=== PATIENT | female | born 1995 | race African-American/Black ===

== ENCOUNTER 2017-08-26 19:12 | Emergency (ER) | payer OTHER ==
[2017-08-26 19:29] VITALS: BP 125/73; PULSE 82; TEMP 98.2; BMI 37.8
[2017-08-26] MEDS ORDERED: ALBUTEROL SO4 2.5/IPRATROPIUM 0.5 INH SOL 3 ML VIAL.NEB. NEB ONE ×2 (19:29→20:03)
--- NOTE | 2017-08-26 19:29 | PDOC ---
Rapid Medical Evaluation Time Seen by Provider: 08/26/17 19:24 Medical Evaluation: Allergies Allergy/AdvReac Type Severity Reaction Status Date / Time No Known Allergies Allergy Verified 11/02/15 03:20 08/26/17 19:25 I have performed a brief in-person evaluation of this patient. The patient presents with a chief complaint of: asthma, pain to low back Pertinent physical exam findings: R sided inspiratory wheezing I have ordered the following: duoneb, cxr The patient will proceed to the ED for further evaluation. Discharge Disposition - Diagnosis Asthma - Referrals - Patient Instructions - Post Discharge Activity
--- NOTE | 2017-08-26 19:52 | PDOC ---
History of Present Illness - General Chief Complaint: Asthma Stated Complaint: ASTHMA Time Seen by Provider: 08/26/17 19:24 History Source: Patient Exam Limitations: No Limitations - History of Present Illness Initial Comments: 08/26/17 20:16 This is an 21-year-old girl with past medical history of mild intermittent asthma who presents to the emergency department with 2 weeks of dry cough and now with back pain and pleuritic chest pain. Patient states over the past 2 days she has developed the back pain and pleuritic chest pain. She denies any shortness of breath. She denies headaches, dizziness, abdominal pain, nausea, vomiting, diarrhea, dysuria, hematuria. Past History - Past Medical History Allergies/Adverse Reactions: Allergies Allergy/AdvReac Type Severity Reaction Status Date / Time No Known Allergies Allergy Verified 08/26/17 19:29 Home Medications: Ambulatory Orders Albuterol Sulfate Inhaler - [Ventolin HFA Inhaler -] 1 - 2 inh PO Q4H #1 inhaler 08/26/17 Azithromycin [Zithromax 250mg Tablets -] 250 mg PO UTDICT #6 tab 08/26/17 Prednisone [Prednisone 50 MG TABLETS] 50 mg PO DAILY #3 tablet 08/26/17 Asthma: Yes COPD: No Other medical history: denies - Immunization History Immunization Up to Date: Yes - Suicide/Smoking/Psychosocial Hx Smoking History: Never smoked Have you smoked in the past 12 months: No Information on smoking cessation initiated: No Hx Alcohol Use: No Drug/Substance Use Hx: No Substance Use Type: None Hx Substance Use Treatment: No Review of Systems - Review of Systems Able to Perform ROS?: Yes Is the patient limited [place] proficient: No Constitutional: No: Symptoms Reported HEENTM: No: Symptoms Reported Respiratory: Yes: See HPI Cardiac (ROS): Yes: See HPI ABD/GI: No: Symptoms Reported : No: Symptoms Reported Musculoskeletal: Yes: See HPI Integumentary: No: Symptoms Reported Neurological: No: Symptoms reported Endocrine: No: Symptoms Reported Hematologic/Lymphatic: No: Symptoms Reported *Physical Exam - Vital Signs Last Vital Signs Temp Pulse Resp BP Pulse Ox 98.2 F 82 20 125/73 99 08/26/17 19:26 08/26/17 19:26 08/26/17 19:26 08/26/17 19:26 04/12/18 19:26 - Physical Exam General Appearance: Yes: Appropriately Dressed. No: Apparent Distress HEENT: positive: Normal ENT Inspection Neck: positive: Trachea midline, Supple Respiratory/Chest: positive: Lungs Clear, Wheezing (Expirational). negative: Respiratory Distress, Accessory Muscle Use Cardiovascular: positive: Regular Rhythm, Regular Rate. negative: Murmur Gastrointestinal/Abdominal: positive: Normal Bowel Sounds, Soft. negative: Tender Musculoskeletal: positive: Normal Inspection. negative: CVA Tenderness Extremity: positive: Normal Inspection Integumentary: positive: Normal Color, Dry, Warm Neurologic: positive: Alert, Normal Response ED Treatment Course - Medications Given in the ED: ED Medications Discontinued Medications Generic Name Dose Route Start Last Admin Trade Name Freq PRN Reason Stop Dose Admin Albuterol/Ipratropium 1 amp 08/26/17 19:29 08/26/17 19:31 Duoneb - NEB 08/26/17 19:30 1 amp ONCE ONE Administration Medical Decision Making - Medical Decision Making 08/26/17 20:13 A/P: 21-year-old female history of asthma presents emergency departments with 2 weeks of dry cough. Forced expiratory wheezes present Speaking full sentences Respirations even and unlabored Chest x-ray, prednisone 60 mg, DuoNebs Chest x-ray as read by me: Cardiac silhouette is within normal limits. No focal consolidation or infiltrate is noted. No pneumothorax is seen. Visualized osseous structures are intact. *DC/Admit/Observation/Transfer Diagnosis at time of Disposition: Bronchitis Asthma Qualifiers: Asthma severity: mild Asthma persistence: intermittent Asthma complication type : unspecified Qualified Code(s): J45.20 - Mild intermittent asthma, uncomplicated - Discharge Dispostion Disposition: HOME Condition at time of disposition: Stable Admit: No - Prescriptions Prescriptions: Albuterol Sulfate Inhaler - [Ventolin HFA Inhaler -] 1 - 2 inh PO Q4H #1 inhaler Azithromycin [Zithromax 250mg Tablets -] 250 mg PO UTDICT #6 tab Prednisone [Prednisone 50 MG TABLETS] 50 mg PO DAILY #3 tablet - Referrals - Patient Instructions Printed Discharge Instructions: Asthma -- Adult Additional Instructions: Rest, drink lots of fluids: Teas, water, soups, Pedialyte Saltwater gargles Steamy showers/seem to face break up mucus Avoid contact with others until fevers and cough resolved Lots of handwashing and good hygiene Continue [id number] medications for symptomatic relief Tylenol or Motrin for fever and pain Prednisone as directed until completed Azithromycin as directed Followup with private physician in one to 2 days Return to emergency department / pediatric hospital for worsened symptoms, fevers, dehydration - Post Discharge Activity
[2017-08-26] MEDS ORDERED: predniSONE 20 MG TABLET (UD) PO ONE (20:13)
[2017-08-26] MEDS ORDERED: predniSONE 20 MG TABLET (UD) ONE (20:14)
== END 2017-08-26 20:48 | disposition home or self-care (01) ==
LOC: JERFT 19:12
PROC: 3E0F7GC Introduction of Other Therapeutic Substance into Respiratory Tract, Via Natural or Artificial Opening (ICD-10-PCS; principal; 2017-08-26)
PROC: 3E0F7GC Introduction of Other Therapeutic Substance into Respiratory Tract, Via Natural or Artificial Opening (ICD-10-PCS; 2017-08-26)
DX: J45.20 Mild intermittent asthma, uncomplicated (principal); J20.9 Acute bronchitis, unspecified
CPT/HCPCS: 71046-TC-FY; 99281-25

== ENCOUNTER 2020-11-04 11:00 | Emergency (ER) | payer OTHER ==
[2020-11-04 11:13] VITALS: BP 110/71; PULSE 80; TEMP 98.4; BMI 36.0
[2020-11-04] MEDS ORDERED: SODIUM CHLORIDE 1,000 ML IV STA (11:33)
[2020-11-04] MEDS ORDERED: ACETAMINOPHEN 1000 MG/100 ML VIAL (NON FORMULARY) IVPB ONE (11:33)
[2020-11-04] MEDS ORDERED: METOCLOPRAMIDE HCL INJECTION 10 MG/2 ML VIAL IVPUSH ONE (11:33)
[2020-11-04] MEDS ORDERED: METOCLOPRAMIDE HCL INJECTION 10 MG/2 ML VIAL ONE (11:55)
[2020-11-04] MEDS ORDERED: ACETAMINOPHEN INJECTION 100 ML IVPB ONE (11:55)
[2020-11-04] MEDS ORDERED: KETOROLAC TROMETHAMINE 30 MG/1 ML VIAL IVPUSH ONE (12:23)
[2020-11-04] MEDS ORDERED: KETOROLAC TROMETHAMINE 30 MG/1 ML VIAL ONE (12:39)
== END 2020-11-04 13:12 | disposition home or self-care (01) ==
LOC: JERFT 11:00
PROC: 3E0333Z Introduction of Anti-inflammatory into Peripheral Vein, Percutaneous Approach (ICD-10-PCS; principal; 2020-11-04)
PROC: 3E033GC Introduction of Other Therapeutic Substance into Peripheral Vein, Percutaneous Approach (ICD-10-PCS; 2020-11-04)
PROC: 3E0333Z Introduction of Anti-inflammatory into Peripheral Vein, Percutaneous Approach (ICD-10-PCS; 2020-11-04)
PROC: 3E033GC Introduction of Other Therapeutic Substance into Peripheral Vein, Percutaneous Approach (ICD-10-PCS; 2020-11-04)
PROC: 3E0337Z Introduction of Electrolytic and Water Balance Substance into Peripheral Vein, Percutaneous Approach (ICD-10-PCS; 2020-11-04)
DX: G44.209 Tension-type headache, unspecified, not intractable (principal)
CPT/HCPCS: 84703; 99284-25; J0131

== ENCOUNTER 2022-08-30 06:45 | Emergency (ER) | payer OTHER ==
[2022-08-30 06:54] VITALS: BP 133/98; PULSE 88; RESP 20; TEMP 98; BMI 35.3
[2022-08-30] MEDS ORDERED: ACETAMINOPHEN 1000 MG/100 ML BAG IVPB ONE (07:05)
[2022-08-30] MEDS ORDERED: ACETAMINOPHEN INJECTION 100 ML IVPB ONE (07:19)
[2022-08-30 08:14] LABS: EPI CELLS 27 /uL (0-25.1); HYALINE CASTS 2 /uL (0-3.1); PH,URINE 5.5 (5.0-8.0); URINE APPEARANCE CLEAR; URINE BACTERIA 89 /uL (0-1359); URINE BILIRUBIN NEGATIVE (NEGATIVE); URINE COLOR YELLOW; URINE GLUCOSE (UA) NEGATIVE (NEGATIVE); URINE KETONE TRACE (NEGATIVE); URINE LEUK ESTERASE NEGATIVE (NEGATIVE); URINE NITRITE NEGATIVE (NEGATIVE); URINE PROTEIN TRACE (NEGATIVE); URINE RBC 18 /uL (0-23.9); URINE WBC 11 /uL (0-25.8)
[2022-08-30 08:20] LABS: ALBUMIN 3.5 g/dl (3.4-5.0); CALCIUM 9.2 mg/dL (8.5-10.1)
[2022-08-30 08:23] LABS: CREATININE 0.8 mg/dL (0.55-1.3)
[2022-08-30 08:25] LABS: BILIRUBIN,TOTAL 0.4 mg/dL (0.2-1); TOT PROT 7.6 g/dl (6.4-8.2)
[2022-08-30 08:43] LABS: EOS % 4.4 % (0-4.5); HEMATOCRIT 39.3 % (32.4-45.2); HEMOGLOBIN 13.9 GM/dL (10.7-15.3); LYMPH % 26.7 % (8-40); MCH 28.5 pg (25.7-33.7); MCHC 35.3 g/dl (32.0-36.0); MEAN CELL VOLUME 80.6 fl (80-96); MEAN PLT VOLUME 8.7 fl (7.5-11.1); MONO % 7.7 % (3.8-10.2); NEUT % 60.2 % (42.8-82.8); PLATELET COUNT 465 10^3/uL (134-434); RBC 4.87 M/mm3 (3.60-5.2); RDW 14.6 % (11.6-15.6); WHITE BLOOD COUNT 6.2 K/mm3 (4.0-10.0)
== END 2022-08-30 12:24 | disposition home or self-care (01) ==
LOC: JER 06:45
PROC: 3E0333Z Introduction of Anti-inflammatory into Peripheral Vein, Percutaneous Approach (ICD-10-PCS; principal; 2022-08-30)
DX: O20.9 Hemorrhage in early pregnancy, unspecified (principal); Z3A.08 8 weeks gestation of pregnancy
CPT/HCPCS: 36415; 76817-TC; 80053; 81003; 84702; 85025; 86850; 86900; 86901; 87086; 99285-25

== ENCOUNTER 2022-08-30 21:08 | Emergency (ER) | payer OTHER ==
[2022-08-30 21:14] VITALS: RESP 18; TEMP 98.2; BMI 35.3
[2022-08-30] MEDS ORDERED: ACETAMINOPHEN 1000 MG/100 ML BAG IVPB ONE (22:19)
[2022-08-30] MEDS ORDERED: ACETAMINOPHEN INJECTION 100 ML IVPB ONE (22:39)
[2022-08-30 23:02] LABS: BASO % 1.2 % (0-2.0); EOS % 2.8 % (0-4.5); HEMATOCRIT 41.2 % (32.4-45.2); HEMOGLOBIN 13.9 GM/dL (10.7-15.3); LYMPH % 30.8 % (8-40); MCH 27.5 pg (25.7-33.7); MCHC 33.7 g/dl (32.0-36.0); MEAN CELL VOLUME 81.5 fl (80-96); MEAN PLT VOLUME 7.8 fl (7.5-11.1); NEUT % 57.2 % (42.8-82.8); PLATELET COUNT 491 10^3/uL (134-434); RBC 5.06 M/mm3 (3.60-5.2); RDW 14.9 % (11.6-15.6); WHITE BLOOD COUNT 8.8 K/mm3 (4.0-10.0)
[2022-08-30] MEDS ORDERED: METHYLERGONOVINE MALEATE 0.2 MG/1 ML AMP IM ONE (23:26)
[2022-08-30] MEDS ORDERED: OXYTOCIN 20 UNITS in 0.9% NS 20 UNIT/1,000 ML INFUS.BAG IV SCH (23:30)
[2022-08-30 23:52] LABS: ALBUMIN 3.6 g/dl (3.4-5.0); BLOOD UREA NITROGEN 10.9 mg/dL (7-18); CALCIUM 9.3 mg/dL (8.5-10.1)
[2022-08-30] MEDS ORDERED: morphine SULFATE 4 MG/ML VIAL IVPUSH ONE (23:52)
[2022-08-30 23:55] LABS: CREATININE 0.7 mg/dL (0.55-1.3)
[2022-08-30 23:57] LABS: BILIRUBIN,TOTAL 0.2 mg/dL (0.2-1); TOT PROT 7.8 g/dl (6.4-8.2)
[2022-08-31 00:27] VITALS: BP 109/72; PULSE 71
[2022-08-31] MEDS ORDERED: morphine SULFATE 4 MG/ML VIAL IVPUSH ONE (01:11)
[2022-08-31] MEDS ORDERED: morphine SULFATE 4 MG/ML VIAL IVPB ONE (01:14)
[2022-08-31] MEDS ORDERED: morphine SULFATE 4 MG/ML VIAL ONE (01:17)
== END 2022-08-31 06:30 | disposition home or self-care (01) ==
LOC: JER 21:08
DX: O03.9 Complete or unspecified spontaneous abortion without complication (principal); Z3A.01 Less than 8 weeks gestation of pregnancy
CPT/HCPCS: 0241U-QW; 36415; 80053; 85025; 86850; 86900; 86901; 87081; 99285-25